=== PATIENT | male | born 1990 | race African-American/Black ===

== ENCOUNTER 2024-02-22 13:56 | Emergency (ER) | payer MEDICAID ==
[~2024-02-22] VITALS: Ht 157.5 cm; Wt 95.3 kg
[2024-02-22] MEDS ORDERED: ONDANSETRON 4 MG TAB.RAPDIS ONE (15:22)
[2024-02-22] MEDS: ONDANSETRON 4 MG TAB.RAPDIS PO ONE (15:25)
[2024-02-22 15:36] LABS: BASOPHILS % (AUTO) 0.5 % (0.0-2.0); EOSINOPHILS % (AUTO) 0.4 % (0.0-6.0); HEMATOCRIT 39 % (39-51); HEMOGLOBIN 13.4 g/dL (13.5-17.5); LYMPHOCYTES # (AUTO) 1.9 K/uL (0.8-4.8); LYMPHOCYTES % (AUTO) 41.3 % (20.0-44.0); MEAN CORPUSCULAR HEMOGLOBIN 32 PG (26.0-33.0); MEAN CORPUSCULAR HGB CONC 34 g/dl (31.0-36.0); MEAN CORPUSCULAR VOLUME 95 fL (80-96); MONOCYTES # (AUTO) 0.4 K/uL (0.1-1.30); MONOCYTES % (AUTO) 8.6 % (2.0-12.0); NEUTROPHILS # (AUTO) 2.3 K/uL (1.8-8.9); NEUTROPHILS % (AUTO) 49.2 % (43.0-81.0); PLATELET COUNT (AUTO) 267 K/uL (150-450); RED BLOOD CELL COUNT(AUTO) 4.17 MIL/uL (4.5-6.0); RED CELL DISTRIBUTION WIDTH 13.1 % (11.5-15.0); WHITE BLOOD COUNT (AUTO) 4.6 K/uL (4.3-11.0)
[2024-02-22 15:54] LABS: INR 1.07 (0.91-1.10); PARTIAL THROMBOPLASTIN TIME 20.1 SEC (24.3-34.3); PROTHROMBIN TIME 11.3 SECS (9.2-11.1)
[2024-02-22 16:09] LABS: ALBUMIN 3.3 g/dL (3.4-5.0); BILIRUBIN,DIRECT 0.1 mg/dL (0.0-0.2); BILIRUBIN,TOTAL 0.3 mg/dL (0.2-1.0); CALCIUM, SERUM 8.8 mg/dL (8.5-10.1); CREATININE 0.8 mg/dL (0.6-1.3); POTASSIUM 3.7 mmol/L (3.5-5.1); TOTAL PROTEIN, SERUM 8.1 g/dL (6.4-8.2)
[2024-02-22] MEDS ORDERED: AMLO10TA4 PO (19:05)
[2024-02-22 19:15] VITALS: BP 129/88; TEMP 208.2; O2SAT 98
== END 2024-02-22 19:15 | disposition home or self-care (01) ==
LOC: ER 13:56
DX: I10 Essential (primary) hypertension (principal); R42 Dizziness and giddiness
CPT/HCPCS: 99285; 70450; 71045; 93005; 85025; 80048; 80076; 36415; 85730; Q0162

== ENCOUNTER 2025-03-26 13:49 | Emergency (ER) | payer SELFPAY ==
[~2025-03-26] VITALS: Ht 157.5 cm; Wt 104.3 kg
[~2025-03-26 13:49] MED LIST: AMLO10TA4 PO
[2025-03-26 15:07] LABS: CALCIUM, SERUM 8.9 mg/dL (8.5-10.1); CREATININE 0.8 mg/dL (0.6-1.3); PLATELET COUNT (AUTO) 414 K/uL (150-450); RED BLOOD CELL COUNT(AUTO) 4.30 MIL/uL (4.5-6.0); RED CELL DISTRIBUTION WIDTH 13.4 % (11.5-15.0); SODIUM SERUM 136 mmol/L (136-145); UREA NITROGEN, BLOOD 13 mg/dL (7-18); WHITE BLOOD COUNT (AUTO) 5.4 K/uL (4.3-11.0)
[2025-03-26 15:10] LABS: ALCOHOL, BLOOD < 3 mg/dL (0-10)
[2025-03-26 16:13] LABS: APPEARANCE,URINE CLEAR (CLEAR); BLOOD, URINE NEGATIVE Ery/uL (NEGATIVE); LEUKOCYTE ESTERASE ,URINE NEGATIVE (NEGATIVE); NITRITE, URINE NEGATIVE (NEGATIVE); UGLUCOSE NEGATIVE (NEGATIVE)
[2025-03-26 16:18] LABS: ADD URINE CULTURE NO; SQUAMOUS EPITHELIAL CELL,UR None Seen /HPF (None Seen)
[2025-03-26] MEDS: IV NS 0.9% 1,000 ML BAG IV ONE (16:23)
[2025-03-26 16:27] LABS: AMPHETAMINE, URINE NEGATIVE (NEGATIVE); BARBITURATE, URINE NEGATIVE (NEGATIVE); BENZODIAZEPINE, URINE NEGATIVE (NEGATIVE); CANNABINOID, URINE NEGATIVE (NEGATIVE); COCCAINE, URINE NEGATIVE (NEGATIVE); OPIATE, URINE NEGATIVE (NEGATIVE)
[2025-03-26 18:19] VITALS: BP 120/78; TEMP 97.9; O2SAT 99
== END 2025-03-26 18:21 | disposition home or self-care (01) ==
LOC: ER 13:54
DX: R42 Dizziness and giddiness (principal); R53.83 Other fatigue; R53.1 Weakness; Z79.899 Other long term (current) drug therapy
CPT/HCPCS: 99285; 96360; 71045; 85025; 80048; 81001; 36415; 84443; 80320; 80307; J7030; G0480